=== PATIENT | male | born 1965 | race Caucasian/White ===

== ENCOUNTER 2020-03-03 20:58 | Emergency (ER) | payer SELFPAY ==
[2020-03-03] MEDS ORDERED: EPINEPHrine 1 MG/ML SDV IM ONE (21:01)
[2020-03-03] MEDS ORDERED: diphenhydrAMINE 50 MG/ML SDV IVPUSH ONE (21:01)
[2020-03-03] MEDS ORDERED: methylPREDNISolone Sodium Succinate 125 MG/2 ML SDV IVPUSH ONE (21:01)
[2020-03-03] MEDS ORDERED: Famotidine 20 MG/2 ML SDV IVPUSH ONE (21:01)
[2020-03-03] MEDS ORDERED: Cetirizine 10 MG Tab PO ONE (22:57)
--- NOTE | 2020-03-03 23:02 | EDM.PDOC ---
ED HPI GENERAL MEDICAL PROBLEM - General Chief Complaint: Allergic Reaction Stated Complaint: ALLERGIC REACTION Time Seen by Provider: 03/03/20 21:01 Source of Information: Reports: Patient, Family History Limitations: Reports: No Limitations - History of Present Illness INITIAL COMMENTS - FREE TEXT/NARRATIVE: Joe is a 54-year-old male presenting to the ED with an acute anaphylactic reaction causing facial swelling, difficulty swallowing, and mild shortness of breath. The patient reports that his symptoms started shortly after eating a salad that had mixed greens and ranch dressing as well as a cut up karina tonight. The patient does report having a significant allergy to pistachio nuts but is adamant that there were none involved in his meal tonight. Upon arrival to the ED, he has significant perioral swelling, muffled voice, some swelling in the neck, but no evidence for stridor. They did stop to parts picker some Benadryl in route, however, the local grocery store was closed. They subsequently called ahead to the ER to notify us that the patient was coming in with this reaction. Upon arrival to the ED, the patient was moved quickly to the stabilization room (9). Treatments CHEMICAL HANDLER: Reports: Other (see below) Other Treatments CHEMICAL HANDLER: benadryl - Related Data Allergies Allergy/AdvReac Type Severity Reaction Status Date / Time karina Allergy Facial Verified 03/03/20 21:54 Swelling pistachio nut Allergy Swelling Verified 03/03/20 21:07 Home Meds: Home Meds EPINEPHrine [Epinephrine] 0.3 mg IJ ASDIRECTED #1 auto.injct 03/03/20 [Rx] Ibuprofen 600 mg PO ASDIRECTED 03/03/20 [History] Past Medical History Musculoskeletal History: Reports: Fracture - Infectious Disease History Infectious Disease History: Reports: Chicken Pox Social & Family History - Tobacco Use Tobacco Use Status *Q: Never Tobacco User Second Hand Smoke Exposure: No - Caffeine Use Caffeine Use: Reports: Coffee - Alcohol Use Days Per Week of Alcohol Use: 4 Number of Drinks Per Day: 1 Total Drinks Per Week: 4 - Recreational Drug Use Recreational Drug Use: No ED ROS ALLERGIC REACTION - Review of Systems Review Of Systems: See Below Constitutional: Reports: No Symptoms HEENT: Reports: Throat Swelling (With difficulty swallowing), Other (Perioral swelling.) Respiratory: Reports: Shortness of Breath (Mild) Cardiovascular: Reports: No Symptoms Endocrine: Reports: No Symptoms GI/Abdominal: Reports: No Symptoms : Reports: No Symptoms Musculoskeletal: Reports: No Symptoms Skin: Reports: No Symptoms Neurological: Reports: Paresthesia (Perioral) Psychiatric: Reports: Anxiety Hematologic/Lymphatic: Reports: No Symptoms Immunologic: Reports: Anaphylaxis, Food Allergy ED EXAM GENERAL NO PERIP PULSE - Physical Exam Exam: See Below Exam Limited By: No Limitations General Appearance: Alert, Anxious Throat/Mouth: Normal Teeth, Normal Gums, No Airway Compromise (No evidence for stridor), Inflammation. No: Normal Inspection (Swelling of the retropharynx), Normal Lips (Swelling of the lips and cheeks), Normal Voice (Significantly muffled voice) Head: Atraumatic, Facial Swelling Neck: Supple, Non-Tender, Full Range of Motion, Other (Mild swelling of the proximal neck) Respiratory/Chest: No Respiratory Distress, Lungs Clear, Normal Breath Sounds, No Accessory Muscle Use. No: Rales, Rhonchi, Wheezing, Stridor Cardiovascular: Normal Peripheral Pulses, Regular Rate, Rhythm, No Murmur GI/Abdominal: Normal Bowel Sounds, Soft, Non-Tender Back Exam: Normal Inspection, Full Range of Motion Extremities: Normal Inspection, Normal Range of Motion Neurological: Alert, Oriented, CN II-XII Intact, Normal Cognition, Normal Gait, No Motor/Sensory Deficits Psychiatric: Normal Affect, Normal Mood Skin Exam: Warm, Dry, Intact, No Rash, Erythema (Flushing of the face and neck) Lymphatic: No Adenopathy Course - Vital Signs Last Recorded V/S: Last Vital Signs Temp 35.9 C L 03/03/20 21:23 Pulse 86 03/03/20 21:58 Resp 15 03/03/20 21:58 BP 167/107 H 03/03/20 21:58 Pulse Ox 99 03/03/20 21:58 - Orders/Labs/Meds Meds: Medications Discontinued Medications Generic Name Dose Route Start Last Admin Trade Name Suhn PRN Reason Stop Dose Admin Diphenhydramine HCl 50 mg 03/03/20 21:01 03/03/20 21:11 Benadryl IVPUSH 03/03/20 21:02 50 mg ONETIME ONE Administration Epinephrine HCl 0.5 mg 03/03/20 21:01 03/03/20 21:05 Adrenalin IM 03/03/20 21:02 0.5 mg ONETIME ONE Administration Famotidine 40 mg 03/03/20 21:01 03/03/20 21:20 Pepcid IVPUSH 03/03/20 21:02 40 mg ONETIME ONE Administration Methylprednisolone Sodium Succinate 125 mg 03/03/20 21:01 03/03/20 21:10 Solu-Medrol IVPUSH 03/03/20 21:02 125 mg ONETIME ONE Administration - Re-Assessments/Exams Free Text/Narrative Re-Assessment/Exam: 03/03/20 20:05 upon arrival to the ED, the patient was brought back to the stabilization room 9 and an IV was established. The patient received epinephrine 0.3 mg IM, Solu-Medrol 125 mg IV, Pepcid 40 mg IV, and diphenhydramine 50 mg IV. 03/03/2020 22:55 He has been observed for the last 2 hours with significant improvement in his symptoms without evidence for rebound. His voice is almost back to normal and facial swelling has gone down significantly. Patient does not have any difficulty with swallowing at this time. He is not experiencing any shortness of breath at this time. I believe he is safe for discharge at this time. We will prescribe him an epinephrine autoinjector 0.3 mg per 0.3 mL with 1 refill. I prescribed the generic which he may be able to get through [email or web address] for $110. In addition, the patient was given cetirizine 10 mg p.o. to help continue the antihistamine treatment overnight. Indications to return to the ED were discussed with the patient and all questions were answered prior to discharge. Departure - Departure Time of Disposition: 22:56 Disposition: Home, Self-Care 01 Condition: Good Clinical Impression: Anaphylaxis Qualifiers: Encounter type: initial encounter Qualified Code(s): T78.2XXA - Anaphylactic shock, unspecified, initial encounter - Discharge Information *PRESCRIPTION DRUG MONITORING PROGRAM REVIEWED*: Not Applicable *COPY OF PRESCRIPTION DRUG MONITORING REPORT IN PATIENT CARTER: Not Applicable Prescriptions: EPINEPHrine [Epinephrine] 0.3 mg IJ ASDIRECTED #1 auto.injct Instructions: Anaphylactic Reaction, Adult, How to Use an Auto-Injector Pen Referrals: Beatriz Lombardi MD [Primary Care Provider] - Care Plan Goals: I am giving you a dose of cetirizine 10 mg which is a long-acting antihistamine. If you have any recurrence of the difficulty swallowing you may also take [id number] Pepcid which has strong H2 histamine blockade. If you start to develop shortness of breath, difficulty with talking or swallowing please immediately call 911 and return to the ED. I anticipated will take the next 12 to 24 hours for your symptoms to completely resolve. Please avoid any pistachio or karina based products in the future. It was a delight meeting with both of you and if you have any questions feel free to reach out for answers. Sepsis Event Note (ED) - Evaluation Sepsis Screening Result: No Definite Risk - Focused Exam Vital Signs: Vital Signs Temp Pulse Resp BP Pulse Ox 03/03/20 21:58 86 15 167/107 H 99 03/03/20 21:23 35.9 C L 74 16 160/97 H 98 03/03/20 21:03 35.9 C L 74 16 160/97 H 98 - Problem List & Annotations (1) Anaphylaxis SNOMED Code(s): 11187098 Code(s): T78.2XXA - ANAPHYLACTIC SHOCK, UNSPECIFIED, INITIAL ENCOUNTER Status: Acute Priority: High Current Visit: Yes Qualifiers: Encounter type: initial encounter Qualified Code(s): T78.2XXA - Anaphylactic shock, unspecified, initial encounter - Problem List Review Problem List Initiated/Reviewed/Updated: Yes
== END 2020-03-03 23:17 | disposition home or self-care (01) ==
LOC: JP.ED 20:58
DX: T78.04XA Anaphylactic reaction due to fruits and vegetables, initial encounter (principal); Z91.018 Allergy to other foods
CPT/HCPCS: 96372; 96374; 96375; 99284; J0171; J1200; J2930; J3490